=== PATIENT | male | born 1980 | race Hispanic/Latino ===

== ENCOUNTER 2017-11-15 17:17 | Emergency (ER) | payer OTHER ==
[~2017-11-15] VITALS: Ht 165.1 cm; Wt 72.6 kg
[2017-11-15] MEDS ORDERED: NORCO 5-325 TA1 EACH PO (19:15)
== END 2017-11-15 19:37 | disposition home or self-care (01) ==
LOC: ED 17:17
DX: S02.2XXA Fracture of nasal bones, initial encounter for closed fracture (principal); W22.8XXA Striking against or struck by other objects, initial encounter
CPT/HCPCS: 70160; 99283

== ENCOUNTER 2020-04-30 11:41 | Emergency (ER) | payer OTHER ==
[~2020-04-30] VITALS: Ht 165.1 cm; Wt 72.6 kg
[~2020-04-30 11:41] MED LIST: NORCO 5-325 TA1 EACH PO
--- NOTE | 2020-04-30 20:22 | EKG ---
[facility] [address] [place], [place] [address] Signed Normal sinus rhythm Normal ECG No previous ECGs available Confirmed by SUHAS PEREZ MD ([id number] on 04/30/2020 8:22:16 PM Electronically Signed By: SUHAS PEREZ MD 04/30/202021 PATIENT NAME: GLORIAIMANI Electrocardiogram DATE OF : 78 PHYSICIAN: SUHAS PEREZ MD REPORT #: [id number] REPORT IS CONFIDENTIAL AND NOT TO BE RELEASED WITHOUT AUTHORIZATION
== END 2020-04-30 13:31 | disposition home or self-care (01) ==
LOC: ED 11:41
DX: R07.89 Other chest pain (principal)
CPT/HCPCS: 71045; 80053; 83735; 84484; 85025; 93005; 93010; 99285-25; C9803